=== PATIENT | female | born 1985 | race Caucasian/White ===

== ENCOUNTER → 2016-10-06 | Outpatient (CLI) | payer MEDICAID ==
--- NOTE | 2016-10-06 16:05 | RADRPT ---
PROCEDURE: XR Chest. CLINICAL INDICATION: POSITIVE PPD TECHNIQUE: Single AP view of the chest was obtained COMPARISON: None FINDINGS: The heart and mediastinum are within normal limits. No pneumothorax, pleural effusion, or consolidation is identified. Mild symmetric hazy appearance o f the lower lungs bilaterally is likely related to overlying breast tissue. Several right perihilar rounded nodular densities measuring up to 7 mm may represent vessels on end versus calcified granulomata. A lateral projection may help clarify. There is no evidence of pulmonary vascular congestion. The osseous structures, as visualized, are unremarkable. IMPRESSION: 1. No radiographic evidence of active tuberculosis. 2. Several right perihilar rounded nodular densities measuring up to 7 mm may represent vessels on e nd versus calcified granulomata. A lateral projection may help clarify. RPTAT: EE Physician Teresa Date Time Electronically viewed and signed by Physician Teresa on 10/06/2016 16:05 RICKIE/
== END | disposition home or self-care (01) ==
LOC: RAD 12:59
PROVIDERS: ATTEND Obstetrics & Gynecology
DX: O26.892 Other specified pregnancy related conditions, second trimester (principal); Z3A.20 20 weeks gestation of pregnancy; R76.11 Nonspecific reaction to tuberculin skin test without active tuberculosis
CPT/HCPCS: 71010

== ENCOUNTER → 2016-11-25 | Outpatient (CLI) | payer MEDICAID ==
--- NOTE | 2016-11-25 13:24 | RADRPT ---
PROCEDURE: XR Chest. CLINICAL INDICATION: Positive PPD TECHNIQUE: Single frontal view of the chest was obtained COMPARISON: 10/06/2016 FINDINGS: No pleural effusion or pneumothorax. No consolidation. Stable cardiomediastinal silhouette. No acute osseous abnormality. IMPRESSION: No acute cardiopulmonary disease. No radiographic evidence of intrathoracic tuberculosis. RPTAT: EE Hector Hart Physician Date Time Electronically viewed and signed by Hector Hart Physician on 11/25/2016 13:24 /
== END | disposition home or self-care (01) ==
LOC: RAD 12:01
PROVIDERS: ATTEND Obstetrics & Gynecology
DX: O26.892 Other specified pregnancy related conditions, second trimester (principal); R76.11 Nonspecific reaction to tuberculin skin test without active tuberculosis; Z3A.24 24 weeks gestation of pregnancy
CPT/HCPCS: 71010

== ENCOUNTER 2017-02-14 09:00 | Inpatient (IN) | payer MEDICAID ==
[~2017-02-14] VITALS: Ht 157.5 cm; Wt 79.1 kg
[2017-02-14 09:16] VITALS: Ht 157.5 cm; Wt 79.1 kg
[2017-02-14 09:17] VITALS: BP 123/82
[2017-02-14] MEDS ORDERED: IBUPROFEN 600 MG TAB PO PRN (09:30)
[2017-02-14] MEDS ORDERED: OXYTOCIN 30 UNITS/LR 500 ML IV PRN (09:30)
[2017-02-14] MEDS ORDERED: CARBOPROST 250 MCG INJ IM PRN (09:30)
[2017-02-14] MEDS ORDERED: BUTORPHANOL 2 MG INJ IV PRN (09:30)
[2017-02-14] MEDS ORDERED: METHYLERGONOVINE 0.2 MG INJ IM PRN (09:30)
[2017-02-14] MEDS ORDERED: LIDOCAINE 1% (MPF) 30 ML INJ INJ PRN (09:30)
[2017-02-14] MEDS ORDERED: OXYTOCIN 30 UNITS/LR 500 ML IV SCH ×3 (09:30→11:30)
[2017-02-14] MEDS ORDERED: MISOPROSTOL 200 MCG TAB PR PRN (09:30)
[2017-02-14] MEDS ORDERED: PREN-93 (09:38)
[2017-02-14] MEDS: LACTATED RINGER'S 1,000 ML IV SCH ×3 (10:08→23:22)
[2017-02-14 10:23] LABS: BASOPHILS % 0.2 % (0.0-2.0); EOSINOPHILS % 0.3 % (0.0-7.0); HEMATOCRIT 37.1 % (37.0-47.0); HEMOGLOBIN 12.8 g/dl (12.0-16.0); LYMPHOCYTES # 2.6 10^3/ul (0.8-2.9); LYMPHOCYTES % 28.3 % (15.0-51.0); MEAN CORPUSCULAR HEMOGLOBIN 31.2 pg (29.0-33.0); MEAN CORPUSCULAR HGB CONC 34.5 g/dl (32.0-37.0); MEAN CORPUSCULAR VOLUME 90.5 fl (82.0-101.0); MEAN PLATELET VOLUME 11.1 fl (7.4-10.4); MONOCYTE # 0.6 10^3/ul (0.3-0.9); MONOCYTES % 6.3 % (0.0-11.0); NEUTROPHILS % 64.7 % (39.0-77.0); PLATELET COUNT 249 10^3/UL (140-415); RED CELL DISTRIBUTION WIDTH 13.1 % (11.5-14.5); WHITE BLOOD COUNT 9.3 10^3/ul (4.8-10.8)
[2017-02-14 10:43] LABS: PARTIAL THROMBOPLASTIN TIME 27.2 Sec (25.0-35.0)
[2017-02-14 10:46] LABS: INR 0.89; PROTIME 12.1 Sec (11.9-14.9); PT RATIO 0.9
--- NOTE | 2017-02-14 17:13 | HP ---
Date/Time of Note Date/Time of Note DATE: 02/14/17 TIME: 17:10 OB - History Hx of Present Free Text/Dictation Admitted for induction of labor at 40 weeks and noticed a venous spontaneous labor Last Menstrual Period: Apr 17, 2016 Estimated Due Date: Feb 14, 2017 : 4 Para: 2 Spontaneous : 1 Care: Good Care Ultrasounds: Normal mid trimester US Obstetrical Complications: Gestational Diabetes Medical Complications: None Past Family/Social History * Past Medical, Surgical, Family and Obstetric Histories reviewed from chart. Blood Type: A+ Rubella: immune RPR/VDRL: Negative GBS Status: Negative HBsAG: Negative OB Admission Exam Vital Signs Vital Signs Vital Signs Date Time Temp Pulse Resp B/P Pulse Ox O2 Delivery O2 Flow Rate FiO2 02/14/17 09:17 98.0 123/82 Room Air Physical Exam HEENT: WNL Heart: Rhythm Normal Lungs: Clear, Equal Abdomen: WNL Extremities: Normal Reflexes: Normal Cervical Dilatation: 4cm Effacement: 50% Station: -3 Membranes: Intact Heart Rate: 140's Accelerations: Accelerations Present Decelerations: No Decelerations Varibility: Marked Contractions on Admission: < 5 Minutes Apart Date/Time Contractions Began: February 14, 2017 at 4 5:00 in the morning Frequency of Contractions: Every 3 4 minutes Duration: Over 45 seconds Intensity: Mild Last 72 hours Lab Results CBC & BMP 02/14/17 09:40 OB Assessment/Plan Reason for admission: induction of labor Other Assessment: Term gestation Class A1 diabetes Other plan: Will augment labor with Pitocin Frequent blood sugar monitoring TANISHA HUNG MD Feb 14, 2017 17:13
--- NOTE | 2017-02-14 19:58 | LDN ---
Date/Time of Note Date/Time of Note DATE: 02/14/17 TIME: 19:57 Delivery Summary Normal spontaneous vaginal delivery of a viable over intact perineum Weeks of Gestation 40 Placenta Delivered: Spontaneously, Intact & Complete Meconium: none Episiotomy: No Perineal laceration: 0 Anesthesia type: None Estimated blood loss: 300 Sponge & Needle done & correct: Yes All needle counts correct: Yes Any foreign bodies felt in the: No Problems: Infant Delivery Information Sex Sex: female Apgars 1 Minute: 8 5 Minute: 9 Suctioning Nose & mouth suctioned at kori: Yes Delee suction performed: No Umbilical Cord Umbilical cord with: 3 Vessels Cord presentations: no nuchal cord Cord Blood was obtained: Yes Mother & Baby Disposition Disposition Mom & Baby to Maternity; Good: Yes (Mother and baby were recovered in good condition) Mom transferred to: Other (Maternity) Baby to NICU: No TANISHA HUNG MD Feb 14, 2017 19:58
[2017-02-14 21:40] VITALS: BP 102/61; PULSE 74; RESP 18
[2017-02-15 00:30] VITALS: BP 110/70; PULSE 69; RESP 18
[2017-02-15] MEDS ORDERED: DIBUCAINE 1% 30 GM OINT PR PRN (01:00)
[2017-02-15] MEDS ORDERED: MISOPROSTOL 200 MCG TAB PR PRN (01:00)
[2017-02-15] MEDS ORDERED: BENZOCAINE 20% 56 ML SPRAY TOP PRN (01:00)
[2017-02-15] MEDS ORDERED: ZOLPIDEM 5 MG TAB PO PRN (01:00)
[2017-02-15] MEDS ORDERED: METHYLERGONOVINE 0.2 MG INJ IM PRN (01:00)
[2017-02-15] MEDS ORDERED: CARBOPROST 250 MCG INJ IM PRN (01:00)
[2017-02-15] MEDS ORDERED: WITCH HAZEL/GLYCERIN PAD PR PRN (01:00)
[2017-02-15] MEDS: MAGNESIUM HYDROXIDE 30ML CUP PO SCH ×3 (01:00→21:00)
[2017-02-15] MEDS ORDERED: OXYTOCIN 30 UNITS/LR 500 ML IV PRN (01:00)
[2017-02-15] MEDS ORDERED: HYDROCODONE/APAP (5/325) TAB PO PRN ×2 (01:00)
[2017-02-15] MEDS ORDERED: LANOLIN 7 GM TUBE TOP PRN (01:00)
[2017-02-15 03:50] VITALS: BP 94/56; PULSE 72; RESP 18
[2017-02-15] MEDS: IBUPROFEN 600 MG TAB PO SCH ×3 (05:30→18:10)
[2017-02-15 08:00] VITALS: BP 96/54; PULSE 73; RESP 16
[2017-02-15] MEDS: SENNA/DOCUSATE NA (8.6MG/50MG) TAB PO SCH ×2 (09:28→21:00)
[2017-02-15 10:30] LABS: BASOPHILS % 0.3 % (0.0-2.0); EOSINOPHILS % 0.4 % (0.0-7.0); HEMATOCRIT 31.9 % (37.0-47.0); HEMOGLOBIN 10.8 g/dl (12.0-16.0); LYMPHOCYTES % 28.7 % (15.0-51.0); MEAN CORPUSCULAR HEMOGLOBIN 31.2 pg (29.0-33.0); MEAN CORPUSCULAR HGB CONC 33.9 g/dl (32.0-37.0); MEAN CORPUSCULAR VOLUME 92.2 fl (82.0-101.0); MEAN PLATELET VOLUME 10.9 fl (7.4-10.4); MONOCYTE # 0.7 10^3/ul (0.3-0.9); MONOCYTES % 7.1 % (0.0-11.0); NEUTROPHIL # 6.6 10^3/ul (1.6-7.5); NEUTROPHILS % 63.2 % (39.0-77.0); PLATELET COUNT 219 10^3/UL (140-415); RED BLOOD COUNT 3.46 10^6/ul (4.20-5.40); RED CELL DISTRIBUTION WIDTH 13.2 % (11.5-14.5); WHITE BLOOD COUNT 10.5 10^3/ul (4.8-10.8)
[2017-02-15 12:23] VITALS: BP 90/52; PULSE 83; RESP 18
[2017-02-15 16:00] VITALS: BP 91/50; RESP 16
--- NOTE | 2017-02-15 18:40 | DS ---
Date/Time of Note Date/Time of Note Home next day DATE: 02/15/17 TIME: 18:39 Obstetrical Discharge Record Final Diagnosis Final Diagnosis: Term delivered Other Final Diagnosis Status post vaginal delivery Vaginal Delivery Obstetrical Delivery: Spontaneous Complications Augmentation: Yes Condition on Discharge Physical Assessment Last Vitals: See nurse's notes Voiding: Yes Bowel Movement: Yes Breast: Soft, non-tender, Filling Fundus: Firm Abdomen and Incision: Abdomen is soft bowel sounds present Fundus is firm at umbilicus Episiotomy: Not applicable Calf Tenderness: No Patient Condition: Good TANISHA HUNG MD Feb 15, 2017 18:40
--- NOTE | 2017-02-15 18:41 | PD.PPDC ---
[employer] Discharge Instruction Provider Information Physician Information 31-year-old female had vaginal delivery Diagnosis Final Diagnosis: Status post vaginal delivery Condition Patient Condition: Good Diet Diet: Resume Regular Diet Activity/Restrictions Activity: Normal Activity May Shower Restrictions: Nothing in the Vagina Return to Work or School: Mar 07, 2017 Follow-up Follow-up with Physician: 4, Week/Weeks (In clinic) Return to clinic for OB Instructions: Breast Tenderness Depression Comment: Pelvic rest for 6 weeks TANISHA HUNG MD Feb 15, 2017 18:41
[2017-02-15] MEDS ORDERED: IBUP-1542 PO (18:42)
[2017-02-15 20:30] VITALS: BP 98/52; PULSE 71; RESP 18
[2017-02-16] MEDS: IBUPROFEN 600 MG TAB PO SCH ×3 (00:10→11:54)
[2017-02-16 04:30] VITALS: BP 95/58; PULSE 72; RESP 18
[2017-02-16 08:30] VITALS: BP 104/68; PULSE 76; RESP 18
[2017-02-16] MEDS ORDERED: MEASLES,MUMPS,RUBELLA VACCINE INJ SC* ONE (09:00)
[2017-02-16] MEDS ORDERED: VARICELLA VACCINE LIVE/PF 1,350 UNIT/0.5 ML ML SC* ONE (09:00)
[2017-02-16] MEDS ORDERED: DIPHTH/TET/ACEL PERTUSS (ADULT) 0.5 ML VIAL IM* ONE (09:00)
[2017-02-16] MEDS: MAGNESIUM HYDROXIDE 30ML CUP PO SCH (09:00)
[2017-02-16] MEDS: SENNA/DOCUSATE NA (8.6MG/50MG) TAB PO SCH (09:00)
[2017-02-16] MEDS: LACTATED RINGER'S 1,000 ML IV* SCH ×2 (11:55→11:57)
== END 2017-02-16 15:18 | disposition home or self-care (01) | DRG 775 ==
LOC: L-D 09:03 → PP1 21:47
PROVIDERS: ADMIT Obstetrics & Gynecology; ATTEND Obstetrics & Gynecology
PROC: 10E0XZZ Delivery of Products of Conception, External Approach (ICD-10-PCS; principal; 2017-02-14 09:00)
DX: O48.0 Post-term pregnancy (principal); O24.420 Gestational diabetes mellitus in childbirth, diet controlled; Z37.0 Single live birth; Z3A.40 40 weeks gestation of pregnancy
CPT/HCPCS: 82962; 85025; 85610; 85730; 86592; 86850; 86900; 86901; 87340; 90715; 90716; J0595; J2590; J7120